=== PATIENT | male | born 1980 | race Caucasian/White ===

== ENCOUNTER 2016-12-14 10:53 | Outpatient (CLI) | payer OTHER | END 2016-12-14 12:00 | disposition home or self-care (01) | LOC: RAD 10:53 | DX: R03.0 Elevated blood-pressure reading, without diagnosis of hypertension (principal) | CPT/HCPCS: 93307-TC ==

== ENCOUNTER 2017-01-09 13:28 | Outpatient (CLI) | payer OTHER ==
[2017-01-16 12:15] LABS: H PYLORI IGG SERUM >8.0
[2017-01-16 12:16] LABS: H PYLORI IGA SERUM <9.0
[2017-01-16 12:17] LABS: H PYLORI IGM SERUM <9.0
[2017-03-29 09:27] LABS: H PYLORI IGA SERUM SEE; H PYLORI IGM SERUM SEE REF. LAB REPORT
== END 2017-01-09 14:40 | disposition home or self-care (01) ==
LOC: LAB 13:28
DX: Z20.9 Contact with and (suspected) exposure to unspecified communicable disease (principal)
CPT/HCPCS: 86677-90